=== PATIENT | female | born 1945 | race African-American/Black ===

== ENCOUNTER 2024-11-22 08:46 | Emergency (ER) | payer OTHER, MEDICAID ==
[~2024-11-22] VITALS: Ht 157.5 cm; Wt 91.0 kg
[2024-11-22 08:52] VITALS: O2SAT 98
[2024-11-22 09:42] LABS: BASOPHILS % 0.9 % (0.0-2.0); EOSINOPHILS % 3.6 % (0.0-5.0); HEMATOCRIT. 26.9 % (36.0-48.0); HEMOGLOBIN. 8.8 g/dL (12.0-16.0); LYMPHOCYTES % 18.8 % (20.0-50.0); MEAN PLATELET VOLUME 7.7 fl (7.4-10.4); MONOCYTES % 11.1 % (2.0-8.0); NEUTROPHILS % 65.6 % (40.0-76.0); PLATELET 309 x1000/uL (130-400); RED BLOOD CELL COUNT 3.14 mill/uL (4.2-5.4); RED CELL DISTRIBUTION WIDTH 16.1 % (11.6-14.6)
[2024-11-22 10:02] LABS: UREA NITROGEN BLOOD 63 mg/dL (9-23)
[2024-11-22 10:03] LABS: TROPONIN I HIGH SENSITIVITY 18 ng/L (3.0-34)
[2024-11-22 10:15] LABS: CREATININE 14.5 mg/dL (0.6-1.0)
[2024-11-22] MEDS: FUROSEMIDE 40MG/4ML VIAL IVP ONE (13:02)
[2024-11-22 14:39] VITALS: BP 122/72; PULSE 83; RESP 13; TEMP 36.8; O2SAT 95
== END 2024-11-22 14:54 | disposition short-term general hospital (02) ==
LOC: EDBEDREQ 09:11 → ER 09:54 → EDBEDREQ 13:45 → CANBEDREQ 14:17 → ER 14:54
DX: R07.2 Precordial pain (principal); R00.2 Palpitations; E11.22 Type 2 diabetes mellitus with diabetic chronic kidney disease; I48.91 Unspecified atrial fibrillation; I12.9 Hypertensive chronic kidney disease with stage 1 through stage 4 chronic kidney disease, or unspecified chronic kidney disease; N18.6 End stage renal disease; Z99.2 Dependence on renal dialysis
CPT/HCPCS: 99285; 96374; 71045; 80048; 85025; 84484; 36415; 93005; J1938